=== PATIENT | male | born 1985 | race Caucasian/White ===

== ENCOUNTER 2024-06-22 17:34 | Outpatient (REF) | payer OTHER, SELFPAY ==
[2024-06-22 21:41] LABS: Abs Immature Grans 0.04 10^3/uL (0.0-0.06); Absolute Basophil Count 0.07 10^3/uL (0.0-0.2); Absolute Eosinophil Count 0.29 10^3/uL (0.0-0.7); Absolute Lymphocyte Count 2.78 10^3/uL (1.2-3.4); Absolute Monocyte Count 0.44 10^3/uL (0.1-0.8); Absolute Neutrophil Count 4.92 10^3/uL (1.2-6.7); Basophils % 0.8 %; Eosinophils % 3.4 %; HCT 39.1 % (40.0-50.0); HGB 12.8 g/dL (13.5-17.5); Immature Grans % 0.5 %; Lymphocytes % 32.6 %; MCH 29.6 pg (27.0-33.0); MCHC 32.7 % (32.0-36.0); MCV 90 fL (80-95); MPV 9.2 fL (8.0-11.0); Monocytes % 5.2 %; Neutrophils % 57.5 %; Platelet Count 285 10^3/uL (130-400); RBC 4.33 10^6/uL (4.36-5.78); RDW 13.2 % (11.8-14.1); WBC 8.54 10^3/uL (4.4-10.8)
[2024-06-22 21:59] LABS: ALT 30 U/L (16-63); AST 22 U/L (15-37); Albumin 3.5 g/dL (3.4-5.0); Alkaline Phosphatase 59 U/L (46-116); Anion Gap 10.4 mmol/L (3-11); BUN 14 mg/dL (7-18); Bilirubin, Total 0.4 mg/dL (0.2-1.0); CO2 27.6 mmol/L (21.0-32.0); CREATININE 0.9 mg/dL (0.70-1.30); Calcium 9.4 mg/dL (8.5-10.1); Chloride 103 mmol/L (98-107); Cholesterol 268 mg/dL (<200); Estimated GFR 110.73 (mL/min/1.73m2); Glucose 286 mg/dL (74-106); HDL Cholesterol 32 mg/dL (>or=40); Sodium 141 mmol/L (136-145); TSH 2.04 uIU/mL (0.36-3.74); Total Protein 7.6 g/dL (6.4-8.2)
[2024-06-22 22:01] LABS: Triglyceride 1160 mg/dL (<150)
[2024-06-22 22:11] LABS: LDL CHOLESTEROL 83 mg/dL (<100)
[2024-06-22 22:16] LABS: Hemoglobin A1C 10.7 % (<5.7)
== END 2024-06-22 17:35 | disposition home or self-care (01) ==
LOC: NCHCN 17:34
PROVIDERS: Visit Provider Family Medicine
DX: Z13.29 Encounter for screening for other suspected endocrine disorder (principal); Z00.00 Encounter for general adult medical examination without abnormal findings; Z13.220 Encounter for screening for lipoid disorders; Z13.1 Encounter for screening for diabetes mellitus
CPT/HCPCS: 80053; 80061; 83721; 83036; 84443; 85025

== ENCOUNTER 2024-09-10 08:06 | Day surgery (SDC) | payer OTHER, SELFPAY ==
--- NOTE | 2024-09-09 20:51 | W.PREOPHP ---
Assessment and Plan Assessment and plan (1) Encounter for screening colonoscopy: Status: Acute Assessment and plan: We reviewed the role of screening colonoscopy as part of routine health maintenance, and I explained the risks and the benefits of the procedure including perforation. I think Hugo has very good understanding of this. He is able to provide consent today, and we can proceed with colonoscopy. History of Present Illness History of Present Illness Chief Complaint: colonoscopy Narrative: Hugo is a 38 year old man who is requesting a colonoscopy to screen for colon polyps or cancer. He reports a second degree relative with a diagnosis of colon cancer. He denies any symptoms of colon cancer. PFSH All Active Problems Encounter for screening colonoscopy (Acute) Medical History Hyperlipemia Morbid obesity Essential hypertension Surgical History S/P orchiopexy age 8 or 9 per patient Social History Smoking/Tobacco Use Status: Never Smoking risk assessment performed?: Yes Alcohol Intake: current Alcohol Intake frequency: holidays/special occasions only Drug use: Never Substance use type: does not use Housing: apartment Do you feel safe at home: Yes Do you feel safe in your relationship?: Yes Meds Allergies and Home Medications Allergies Allergy/AdvReac Type Severity Reaction Status Date / Time amoxicillin (From Augmentin) Allergy Skin Rash Verified 09/10/24 08:36 clavulanic acid (From Allergy Skin Rash Verified 09/10/24 08:36 Augmentin) Home Medications ?Medication ?Instructions ?Recorded ?Confirmed ?Type cyanocobalamin (vitamin B-12) 2,500 mcg PO DAILY 07/09/24 09/10/24 History 2,500 mcg tablet hydrochlorothiazide 25 mg tablet 25 mg PO DAILY 07/09/24 09/10/24 History metformin 500 mg tablet 500 mg PO BID 07/09/24 09/10/24 History rosuvastatin 10 mg tablet 10 mg PO DAILY 07/09/24 09/10/24 History Exam Const General: cooperative and not in acute distress Neck Neck: normal visual inspection, no lymphadenopathy and supple Resp Effort & Inspection: normal respiratory effort Auscultation: clear to auscultation bilaterally Cardio Jugular venous pressure: no JVD Rate: regular rate Rhythm: regular rhythm Heart Sounds: S1 normal and S2 normal GI Inspection: normal to inspection Palpation: soft, no guarding, no hernias and nontender Percussion: normal to percussion Auscultation: normal bowel sounds Neuro General: patient alert, patient awake and patient oriented x3 Psych Appearance: grossly normal
--- NOTE | 2024-09-09 20:54 | W.PM.DSUDISC ---
Date of service: 09/10/24 Discharge Plan Disposition Patient Disposition: Home Condition: Good Discharge Details Reason For Visit: screening colonoscopy Attending Provider: Alejandro Davis Home Meds and New Rx's Prescriptions: Continued cyanocobalamin (vitamin B-12) 2,500 mcg tablet 2,500 mcg PO DAILY hydrochlorothiazide 25 mg tablet 25 mg PO DAILY metformin 500 mg tablet 500 mg PO BID rosuvastatin 10 mg tablet 10 mg PO DAILY Discontinued bisacodyl 5 mg tablet,delayed release (DR/EC) 5 mg PO ONCE Qty: 4 0RF Rx Instructions: Per Colonoscopy bowel prep instructions polyethylene glycol 3350 17 gram/dose powder 238 g PO ONCE Qty: 238 0RF Rx Instructions: For Colonoscopy bowel prep, as directed by office Discharge Instructions Additional Instructions: Hugo, is very nice meeting you today, and I hope you are comfortable through the colonoscopy and feel well later today. Everything went very smoothly. Your prep was excellent, and I could see everything fine. I did not see any signs of tumors, polyps, or any other worrisome pathology. Traditional recommendations for patients for screening colonoscopy would suggest a 10-year interval for your next colonoscopy. As you have already encountered, there is not necessarily consensus regarding screening intervals based on family history. Generally, patients with first-degree family relatives should be screened every 5 years. Patients with 2 or more second-degree family relatives with colon cancer also fall into this interval. Certainly, if your health pair will cover more frequent exams, and assuming you tolerate the procedure without too much distress or discomfort, then shorter intervals may be appealing to you. I would encourage you to keep a healthy dialogue with your primary care physician, and if you have any questions at all, please do not hesitate to ask. 1. If tolerated, consume a soft, low fiber diet for 1-2 days. 2[address] Do not drive, drink alcohol, operate machinery, make critical decisions, or do activities that require coordination or balance for 24 hours. 3. Because air was put into your colon during the procedure, expelling air from your rectum (passing gas or farting) is normal. 4. You may not have a bowel movement for 1-3 days because of the colonoscopy prep. This is normal. 5. Go directly to the emergency room if you notice any of the following: Develop chills (warm to touch), or if you have a thermometer and your temperature is above 101 Difficulty breathing or difficultly swallowing Persistent vomiting Severe abdominal pain, other than gas cramps Severe chest pain Black, tarry stools Any bleeding ? exceeding one tablespoon 6. Call your physician if the site where your intravenous was started becomes red, swollen, painful, and warm to touch. 7. Your physician has reviewed your pre-procedure medications. Please continue to take those medications as previously ordered. You will be given specific information/education regarding any changes to your medications before leaving. Stand Alone Forms: Anesthesia Discharge InstBety, Zafar Novoa (DSU) Activity:: Activity as Tolerated Diet:: As Tolerated Discharge Orders Discharge Orders: Discharge Order (Routine); Ordered 09/09/24 Ordered By: Alejandro Davis DS: Diagnosis Discharge Diagnosis (1) Encounter for screening colonoscopy: Status: Acute Asessment and Plan: Negative screening colonoscopy
--- NOTE | 2024-09-09 20:56 | COLE_ITS ---
Date of service: 09/10/24 Time of Service: 10:14 Colonoscopy Report Date of procedure: 09/10/24 Pre-op diagnosis general: screening colonoscopy Post-op diagnosis procedure note: other (Negative screening colonoscopy) Procedure: colonoscopy Surgeon: Alejandro Daivs Anesthesia Type: General:No Airway Estimated blood loss (mL): 0 Pathology: none sent Complications: None Disposition: same day Indications: Hugo is a 38 year old man who requeted a screening colonoscopy Prep: Miralax/Dulcolax Procedure Start Time: 09:42 Procedure End Time: 10:00 Retraction Time: 8 Findings: Negative screening colonoscopy Procedure Description: After the induction of anesthesia, and with Hugo in the left lateral decubitus position, I began by performing an external anorectal exam.? Perineum and skin were normal, as was the anal verge.? There was no evidence of external hemorrhoids.? Next, I performed a digital rectal exam.? I did not appreciate any abnormal findings.? Next, I advanced a colonoscope into the rectal vault.? I performed retroflexion.? This appeared normal.? Using insufflation, I then advanced the colonoscope beyond the rectal folds and into the sigmoid colon before advancing towards the cecum.? The quality of the prep was excellent.? The scope was noted to be in the cecum by identification of the ileocecal valve and appendiceal orifice.? I then began withdrawing the colonoscope using repeated irrigation as necessary for full evaluation of the colonic mucosa. ?Once the scope was withdrawn to the level of the rectum, great care was taken to examine portions of the rectal folds.? I saw no signs of tumors, polyps, or any other worrisome pathology. Finally, the scope was withdrawn and the patient was brought to the same-day surgery recovery unit as the anesthetic wore off. ?The findings and instructions were shared with the patient prior to discharge. [place] Bowel Prep [place] Bowel Prep Right Colon: 3 Left Colon: 3 Transverse Colon: 3 Total Score: 9
[2024-09-10 08:52] VITALS: BP 157/95; PULSE 114; RESP 16; TEMP 35.7; O2SAT 96
[2024-09-10] MEDS: Lactated Ringers 1,000 ML 80 ML IV (09:19)
--- NOTE | 2024-09-10 09:24 | W.ANESPRE ---
General Info Date of Service Date Performed: 09/10/24 Height: 6 ft 1 in Weight: 173.9 kg Body Mass Index (BMI): 50.5 Surgical Procedure: Operation Date: 09/10/24 09:50 Proposed Procedure Side Surgeon p Alvaro Davis MD Meds Allergies and Home Medications Allergies Allergy/AdvReac Type Severity Reaction Status Date / Time amoxicillin (From Augmentin) Allergy Skin Rash Verified 09/10/24 08:36 clavulanic acid (From Allergy Skin Rash Verified 09/10/24 08:36 Augmentin) Home Medication ?Medication ?Instructions ?Recorded cyanocobalamin (vitamin B-12) 2,500 mcg PO DAILY 07/09/24 2,500 mcg tablet hydrochlorothiazide 25 mg tablet 25 mg PO DAILY 07/09/24 metformin 500 mg tablet 500 mg PO BID 07/09/24 rosuvastatin 10 mg tablet 10 mg PO DAILY 07/09/24 Current Visit Medications: Current Medications Generic Name Dose Route Start Last Admin Trade Name Freq PRN Reason Stop Dose Admin Ringer's Solution 1,000 mls @ 80 mls/hr 09/10/24 06:00 09/10/24 09:19 IV 09/10/24 23:59 80 mls/hr INFUSION ELVIE Administration IV Miscellaneous Supplies 1 each 09/10/24 06:00 Iv Access IV 09/10/24 23:59 DIRECTED ELVIE Ondansetron HCl 4 mg 09/09/24 20:57 Ondansetron 4 Mg/2 Ml Vial IVP 10/09/24 20:56 Q4H PRN PRN Nausea / Vomiting Sodium Chloride 0 ml 09/10/24 06:00 Normal Saline Flush 10 Ml Syr IV 09/10/24 23:59 PRN PRN Sodium Chloride 0 ml 09/10/24 06:00 Normal Saline 10 Ml Vial IJ 09/10/24 23:59 DIRECTED PRN Sterile Water 0 ml 09/10/24 06:00 Water,Injection,Sterile 10 Ml Vial IJ 09/10/24 23:59 DIRECTED PRN PFSH Active Problems Active Problems: Problem Status Onset Code Encounter for screening colonoscopy Acute Z12.11 Medical History Medical History Hyperlipemia Morbid obesity Essential hypertension Surgical History Surgical History (Reviewed 09/10/24 @ 08:57 by Judith Segovia S/P orchiopexy age 8 or 9 per patient Tobacco Smoking/Tobacco Use Status: Never Alcohol Alcohol Intake: current Alcohol intake frequency: holidays/special occasions only Substance Use Substance use type: does not use Vital Signs and Lab Results Vital Signs Most Recent Vital Signs in EMR: Most Recent Vital Signs Temp Pulse Resp BP Pulse Ox 35.7 C L 114 H 16 157/95 H 96 09/10/24 08:52 09/10/24 08:52 09/10/24 08:52 09/10/24 08:52 09/10/24 08:52 Anesthesia Assessment and Plan Anesthesia History Personal History: No History of Anesthesia Complications Family History: Family History Unknown Exercise Tolerance Exercise Tolerance: Metabolic Equivalents>4 Pertinent Negatives Pertinent Negatives: No Symptoms of GERD, No Major Cardiovascular Symptoms or Complaints and No Major Pulmonary Symptoms or Complaints Cardiac & Pulmonary Exam Cardiac Exam: Normal S1/S2 Heart Sounds Pulmonary Exam: Clear Bilateral Breath Sounds Implantable Cardiac Device Does patient have a Pacemaker or an ICD?: No Airway Exam Known Difficult Airway: No Mallampati Class: 2 Mouth Opening: Normal (> 3cm) Thyromental Distance: Greater than 3 cm Neck Range of Motion: Full ROM Neck Circumference: Normal Teeth Condition: Normal Dentition ASA Classification ASA Score: ASA 3 Emergency Case?: No NPO Status NPO Status: NPO Clears >2 hours, Solids >8 hours Anesthesia Plan Resuscitation Status: Full Code Anesthesia Technique: General Anesthesia Airway Planned: Natural Airway Monitors Used: Standard Monitors
[2024-09-10 09:25] VITALS: BMI 50.5
[2024-09-10 10:05] VITALS: BP 127/70; PULSE 109; RESP 16; TEMP 36.8; O2SAT 94
--- NOTE | 2024-09-10 10:14 | W.ANESPOSTOP ---
Postoperative Evaluation Date, Time and Location Date Performed: 09/10/24 Time Performed: 10:07 Patient Location: Day Surgery Unit Vital Signs Most Recent Imported Vital Signs: Most Recent Vital Signs Temp Pulse Resp BP Pulse Ox 36.8 C 109 H 16 127/70 94 09/10/24 10:05 09/10/24 10:05 09/10/24 10:05 09/10/24 10:05 09/10/24 10:05 Pain Score Most Recent Pain Score: Most Recent Pain Score Pain Level 0 09/10/24 10:05 Assessment Mental Status: Awake (Alert & Oriented to Patient Baseline) Airway and Respiratory Function: Patent airway with normal (patient baseline) respiratory exam Cardiovascular Function: Hemodynamically Stable Hydration Status: Adequately Hydrated Nausea & Vomiting: No Nausea or Vomiting Pain: Pt. Denies Any Pain Peripheral Nerve Block: Patient did not receive a nerve block
[2024-09-10 10:38] VITALS: BP 159/108; PULSE 107; RESP 16; TEMP 36.4; O2SAT 96
== END 2024-09-10 10:51 | disposition home or self-care (01) ==
LOC: SUR 08:08
PROVIDERS: Visit Provider Surgery
PROC: 0DJD8ZZ Inspection of Lower Intestinal Tract, Via Natural or Artificial Opening Endoscopic (ICD-10-PCS; CPT 45378; principal; 2024-09-10 09:45)
DX: Z12.11 Encounter for screening for malignant neoplasm of colon (principal); Z80.0 Family history of malignant neoplasm of digestive organs
CPT/HCPCS: 45378

== ENCOUNTER 2024-09-17 14:57 | Outpatient (REF) | payer OTHER, SELFPAY ==
[2024-09-17 16:42] LABS: ALT 43 U/L (16-63); AST 40 U/L (15-37); Albumin 3.7 g/dL (3.4-5.0); Alkaline Phosphatase 64 U/L (46-116); Anion Gap 13.2 mmol/L (3-11); BUN 12 mg/dL (7-18); Bilirubin, Total 0.6 mg/dL (0.2-1.0); CO2 25.8 mmol/L (21.0-32.0); CREATININE 1.1 mg/dL (0.70-1.30); Calcium 9.8 mg/dL (8.5-10.1); Chloride 97 mmol/L (98-107); Cholesterol 175 mg/dL (<200); Estimated GFR 87.03 (mL/min/1.73m2); Glucose 221 mg/dL (74-106); HDL Cholesterol 32 mg/dL (>or=40); Potassium 4.3 mmol/L (3.5-5.1); Sodium 136 mmol/L (136-145); Triglyceride 546 mg/dL (<150)
[2024-09-17 16:59] LABS: LDL CHOLESTEROL 66 mg/dL (<100)
== END 2024-09-17 14:58 | disposition home or self-care (01) ==
LOC: NCHCN 14:57
PROVIDERS: PCP Family Medicine; Visit Provider Family Medicine
DX: I10 Essential (primary) hypertension (principal); E78.5 Hyperlipidemia, unspecified
CPT/HCPCS: 80053; 80061; 83721